=== PATIENT | female | born 1990 | race Two or more races ===

== ENCOUNTER 2023-12-17 20:38 | Emergency (ER) | payer MEDICAID, OTHER ==
[~2023-12-17] VITALS: Ht 157.5 cm; Wt 93.0 kg
[2023-12-17 21:34] LABS: Eosinophils # (auto) 0.1 10 ^3/uL (0-0.8); Eosinophils % (auto) 0.7 % (0.0-7.0); Mean Corpuscular Volume 79.2 fL (80.0-100.0); Monocytes # (auto) 0.6 10 ^3/uL (0-1.3); Neutrophils # (auto) 6.4 10 ^3/uL (1.6-8.6); White Blood Cell 8.8 10^3/uL (4.4-10.8)
[2023-12-17 21:36] LABS: Basophils # (auto) 0 10 ^3/uL (0-0.2); Basophils % (auto) 0.5 % (0.0-2.0); Hematocrit 35.8 % (36.0-46.0); Hemoglobin 11.4 g/dL (12.2-16.2); Lymphocytes # (auto) 1.6 10 ^3/uL (0.4-5.4); Lymphocytes % (auto) 18.5 % (10.0-50.0); Mean Corpuscular Hemoglobin 25.3 pg (28.0-32.0); Mean Corpuscular Hgb Conc. 31.9 g/dL (32.0-36.0); Monocytes % (auto) 7.3 % (0.0-12.0); Platelet Count (auto) 362 10^3/uL (140-450); Red Blood Cells 4.52 10^6/uL (4.0-5.20); Red Cell Distribution Width 18.8 % (11.8-14.3)
[2023-12-17 21:42] LABS: Chloride 108 mmol/L (98-107); Potassium 3.9 mmol/L (3.5-5.1); Sodium 139 mmol/L (136-145)
[2023-12-17 21:43] LABS: Anion Gap 5 (5-15); Calcium 9.3 mg/dL (8.7-10.4); Carbon Dioxide 26 mmol/L (20-30)
[2023-12-17 21:48] LABS: BUN/Creatinine Ratio 22.6 (10.0-20.0); Blood Urea Nitrogen 19 mg/dL (9-23); Glucose 102 mg/dL (74-106)
[2023-12-17 21:57] LABS: INR 1.1 (0.9-1.15); Partial Thromboplastin Time 26.9 SEC (24.5-34.5); Prothrombin Time 11.6 sec (9.3-11.8)
[2023-12-17 23:56] VITALS: BP 107/68; TEMP 98.7
[2023-12-17 23:57] VITALS: PULSE 104; RESP 18; O2SAT 95
== END 2023-12-18 | disposition home or self-care (01) ==
LOC: ER 20:38 → EDBD 20:38 → ER 12-18
DX: O72.1 Other immediate postpartum hemorrhage (principal); R10.2 Pelvic and perineal pain; Z98.890 Other specified postprocedural states
CPT/HCPCS: 36415; 76856; 80048; 84702; 85025; 85610; 85730; 86850; 86900; 86901

== ENCOUNTER 2025-04-23 18:51 | Emergency (ER) | payer MEDICAID ==
[~2025-04-23] VITALS: Ht 157.5 cm; Wt 89.0 kg
[2025-04-23 18:54] VITALS: BP 112/71; PULSE 86; RESP 18; TEMP 97.5; O2SAT 99
== END 2025-04-24 02:40 | disposition left against medical advice (07) ==
LOC: ER 18:51
DX: R51.9 Headache, unspecified (principal); Z79.899 Other long term (current) drug therapy